=== PATIENT | female | born 1975 | race Caucasian/White ===

== ENCOUNTER 2023-08-23 13:26 | Emergency (ER) | payer MEDICAID ==
[~2023-08-23] VITALS: Ht 170.2 cm; Wt 77.3 kg
[2023-08-23 13:41] VITALS: BP 132/86; TEMP 97.8
[2023-08-23 14:47] LABS: STREP A NEGATIVE
[2023-08-23 15:23] VITALS: PULSE 83
== END 2023-08-23 15:23 | disposition home or self-care (01) ==
LOC: COL.ER 13:26
PROVIDERS: Nurse Practitioner
DX: B34.9 Viral infection, unspecified (principal); R51.9 Headache, unspecified; J02.9 Acute pharyngitis, unspecified; R05.9 Cough, unspecified; R09.81 Nasal congestion; R50.9 Fever, unspecified